=== PATIENT | female | born 1960 | race Caucasian/White ===

== ENCOUNTER 2023-02-10 15:13 | Emergency (ER) | payer OTHER ==
[~2023-02-10] VITALS: Ht 160 cm; Wt 115.7 kg
[~2023-02-10 15:13] MED LIST: ASPI81EC PO; FURO40 PO; HYDACE5 PO; METO50 PO; OMEP20ER PO; POTCHL10ER PO; PRAV40 PO; PROM25 PO
[2023-02-10 15:22] VITALS: BP 176/99
[2023-02-10] MEDS ORDERED: DOXYCYCLINE HY100 M2 PO (16:43)
[2023-02-10] MEDS ORDERED: Clindamycin HC150 MG PO (18:06)
== END 2023-02-10 18:11 | disposition home or self-care (01) ==
LOC: ER 15:13
DX: N61.0 Mastitis without abscess (principal); I10 Essential (primary) hypertension; J45.909 Unspecified asthma, uncomplicated; K21.9 Gastro-esophageal reflux disease without esophagitis; Z88.0 Allergy status to penicillin; Z88.2 Allergy status to sulfonamides; Z88.5 Allergy status to narcotic agent; Z88.1 Allergy status to other antibiotic agents; Z88.8 Allergy status to other drugs, medicaments and biological substances; Z79.899 Other long term (current) drug therapy; Z79.82 Long term (current) use of aspirin
CPT/HCPCS: 76604; 99283-25; A9270

== ENCOUNTER 2023-02-23 11:30 | Emergency (ER) | payer OTHER ==
[~2023-02-23] VITALS: Ht 160 cm; Wt 115.7 kg
[~2023-02-23 11:30] MED LIST changes: +Clindamycin HC150 MG PO; +DOXYCYCLINE HY100 M2 PO
[2023-02-23 11:56] VITALS: BP 150/75
[2023-02-23 12:22] LABS: BASOPHILS ABSOLUTE AUTO 0.11 K/mm3 (0.00-0.23); BASOPHILS PERCENT AUTO 1 % (0-2); EOSINOPHILS ABSOLUTE AUTO 0.36 K/mm3 (0.00-0.68); EOSINOPHILS PERCENT AUTO 3 % (0-6); Hematocrit 49.7 % (33.0-51.0); Hemoglobin 16.9 g/dL (11.5-16.0); IMMATURE GRAN ABSOLUTE AUTO 0.03 K/mm3 (0.00-0.10); IMMATURE GRAN PERCENT AUTO 0 % (0-1); LYMPHOCYTES ABSOLUTE AUTO 3.92 K/mm3 (0.84-5.20); LYMPHOCYTES PERCENT AUTO 37 % (21-46); MONOCYTES ABSOLUTE AUTO 0.96 K/mm3 (0.16-1.47); MONOCYTES PERCENT AUTO 9 % (4-13); Mean Corpuscular HGB 31.6 pg (26.0-34.0); Mean Corpuscular Volume 93 fL (80-100); Mean Platelet Volume 10.4 fL (9.1-12.4); NEUTROPHILS ABSOLUTE AUTO 5.31 K/mm3 (1.96-9.15); NEUTROPHILS PERCENT AUTO 50 % (41-73); Platelet Count 223 K/mm3 (150-400); RDW Coefficient Variation 11.4 % (11.7-14.2); RDW Standard Deviation 38.4 fL (35.1-46.3); Red Blood Cell Count 5.35 M/mm3 (3.80-5.20); White Blood Cell Count 10.69 K/mm3 (4.00-11.30)
[2023-02-23 12:49] LABS: Albumin, Blood 3.5 g/dL (3.4-5.0); Albumin/Globulin Ratio 0.9 (0.8-1.8); Bilirubin, Total 0.4 mg/dL (0.1-1.0); Bun/Creatinine Ratio 14.2 (12.0-20.0); Calcium, Blood 8.9 mg/dL (8.5-10.1); Creatinine, Blood 1.13 mg/dL (0.40-1.00); Globulin, Blood 4.1 g/dL (2.2-4.0); Potassium, Blood 3.7 mmol/L (3.5-5.5); Total Protein, Blood 7.6 g/dL (6.4-8.2)
[2023-02-23] MEDS ORDERED: CEFU500T30 PO (17:52)
[2023-02-23] MEDS ORDERED: CLIN300 PO (17:52)
== END 2023-02-23 18:00 | disposition home or self-care (01) ==
LOC: ER 11:30
PROVIDERS: Physician Assistant
DX: N61.1 Abscess of the breast and nipple (principal); I10 Essential (primary) hypertension; J45.909 Unspecified asthma, uncomplicated; Z88.0 Allergy status to penicillin; Z88.1 Allergy status to other antibiotic agents; Z88.2 Allergy status to sulfonamides; Z88.5 Allergy status to narcotic agent; Z88.8 Allergy status to other drugs, medicaments and biological substances
CPT/HCPCS: 10060; 76604; 80053; 85025; 96365-59; 96366-59; 96375-59; 99283-25; J1885; J3370; J7050

== ENCOUNTER 2023-06-01 09:29 | Day surgery (SDC) | payer OTHER ==
[~2023-06-01 09:29] MED LIST changes: +CEFU500T30 PO; +CLIN300 PO
[2023-06-01] MEDS ORDERED: Acetaminophen650 M1 PO (15:48)
[2023-06-01] MEDS ORDERED: IBUP200 PO (15:49)
[2023-06-01] MEDS ORDERED: HYDCHL25 PO (15:49)
[2023-06-01] MEDS ORDERED: HYDPAM25 PO (15:49)
[2023-06-01] MEDS ORDERED: [UNRECOGNIZED DRUG - OTHER] PO (15:53)
[2023-06-01] MEDS ORDERED: Ativan1 MG PO (15:53)
[2023-06-01] MEDS ORDERED: Triamcinolone A15 G3 TOP (15:55)
[2023-06-09] MEDS ORDERED: OXYC5 PO (10:32)
== END 2023-06-08 22:43 | disposition home or self-care (01) ==
LOC: MOI US 09:29
DX: C50.411 Malignant neoplasm of upper-outer quadrant of right female breast (principal); Z17.0 Estrogen receptor positive status [ER+]
CPT/HCPCS: 19285; 77065; A4648; G0279

== ENCOUNTER 2023-06-04 06:59 | Day surgery (SDC) | payer OTHER ==
[~2023-06-04] VITALS: Ht 160 cm; Wt 122.4 kg
[2023-06-04] VITALS (15 sets, daily range): BP systolic 122–146; BP diastolic 58–97
[~2023-06-04 06:59] MED LIST changes: +Acetaminophen650 M1 PO; +Ativan1 MG PO; +HYDCHL25 PO; +HYDPAM25 PO; +IBUP200 PO; +Triamcinolone A15 G3 TOP; +[UNRECOGNIZED DRUG - OTHER] PO
[2023-06-04] MEDS ORDERED: Methylene Blue 1% 100 MG/10 ML VIAL ONE (08:37)
[2023-06-04] MEDS ORDERED: Bupivacaine 0.5% HCl 5 MG/ML 30MLVIAL ONE ×2 (08:37→13:10)
[2023-06-04] MEDS ORDERED: Lactated Ringer's 1,000 ML IV SCH (08:40)
[2023-06-04] MEDS ORDERED: Clindamycin 600mg in D5W 50 ML IV SCH (08:40)
[2023-06-04] MEDS ORDERED: propofoL 20 ML IV ONE (09:15)
[2023-06-04] MEDS ORDERED: Ondansetron HCl 2 MG / ML 2ML Vial ONE (09:18)
[2023-06-04] MEDS ORDERED: SuccINYLCHOLINE Chloride 100 MG/5 ML 5MLSYR ONE (09:18)
[2023-06-04] MEDS ORDERED: FentaNYL Citrate 50 MCG/ML 2 ML Injection ONE ×2 (09:18→15:35)
[2023-06-04] MEDS ORDERED: Rocuronium Bromide 10 MG/ML 5ML Injection IV ONE (09:18)
[2023-06-04] MEDS ORDERED: Dexamethasone Sod Phos 10 MG/ML 1ML VIAL ONE (09:18)
--- NOTE | 2023-06-04 09:23 | NUR ---
Ambulatory in Day Surgery. History, Chart, Medications and Allergies reviewed before start of procedure. Lungs clear T/O to Auscultation. Patient confirms NPO status and agrees with scheduled surgery. Pre-Op teaching done. Pt verbalizes understanding. Patient States Post-Procedure ride home has been arranged. PT BELONGINGS PLACED UNDERNEATH GURNEY FOR SAFEKEEPING. PT DENTURES TAKEN TO PACU FOR SAFEKEEPING.
--- NOTE | 2023-06-04 10:22 | NUR ---
STAT ECHO ORDERED BY DR DE LA CRUZ, AUTO PARTS SALESPERSON AT BEDSIDE.
[2023-06-04] MEDS ORDERED: Etomidate 2MG / ML 10ML Vial ONE (12:54)
[2023-06-04] MEDS ORDERED: Sugammadex Sodium 200 MG/2ML SDV (100 MG/ML) ONE (13:42)
[2023-06-04] MEDS ORDERED: Glycopyrrolate 0.2 MG/ML 5ML VIAL ONE (13:53)
[2023-06-04] MEDS ORDERED: Ketorolac Tromethamine 30mg Vial ONE (14:05)
[2023-06-04] MEDS ORDERED: HYDROcodone 7.5-APAP 325 TAB PO PRN (16:15)
[2023-06-04] MEDS ORDERED: HYDROcodone 5-APAP 325 TAB PO PRN (16:45)
--- NOTE | 2023-06-04 17:04 | NUR ---
Ambulatory in Day Surgery with minimal assistance. Discharge instructions reviewed with patient. Patient verbalizes understanding. Copy given to patient to take home. Lungs clear T/O to Auscultation. Discharged via wheelchair to private car for ride home.
[2023-06-09] MEDS ORDERED: OXYC5 PO (10:32)
== END 2023-06-05 23:01 | disposition home or self-care (01) ==
LOC: NM 06:59 → ORSCMMR 06:59 → NM 07:01 → ORSCMMR 07:01 → NM 08:00 → ORSCMMR 22:42 → NM 22:42
PROVIDERS: Surgery
PROC: 0HBT0ZZ Excision of Right Breast, Open Approach (ICD-10-PCS; principal; 2023-06-04 09:00)
DX: C50.411 Malignant neoplasm of upper-outer quadrant of right female breast (principal); Z17.0 Estrogen receptor positive status [ER+]; Z88.0 Allergy status to penicillin; Z88.2 Allergy status to sulfonamides; Z88.5 Allergy status to narcotic agent
CPT/HCPCS: 38792; 76098; 88307; 93306; A9270; A9520; J0330; J1100; J1885; J2405; J2704; J3010; J7120; Q9968

== ENCOUNTER 2023-06-07 13:18 | Emergency (ER) | payer OTHER ==
[~2023-06-07] VITALS: Ht 167.6 cm; Wt 113.4 kg
[2023-06-07 16:01] LABS: Hematocrit 38.3 % (33.0-51.0); Hemoglobin 12.7 g/dL (11.5-16.0); Mean Corpuscular HGB Conc 33.2 g/dL (31.5-36.5); Mean Corpuscular Volume 93 fL (80-100); Mean Platelet Volume 10.1 fL (9.1-12.4); Platelet Count 250 K/mm3 (150-400); RDW Coefficient Variation 12.1 % (11.7-14.2); RDW Standard Deviation 41.9 fL (35.1-46.3); White Blood Cell Count 14.93 K/mm3 (4.00-11.30)
[2023-06-07] MEDS ORDERED: HYDROmorphone HCl/Pf 1MG SYR IV ONE (16:05)
[2023-06-07] MEDS ORDERED: Ondansetron HCl 2 MG / ML 2ML Vial IV ONE (16:05)
[2023-06-07 16:29] LABS: BASOPHILS ABSOLUTE MAN 0.29 K/mm3 (0.00-0.23); BASOPHILS PERCENT MAN 2 % (0-2); EOSINOPHILS ABSOLUTE MAN 0.74 K/mm3 (0.00-0.68); EOSINOPHILS PERCENT MAN 5 % (0-6); LYMPHOCYTES ABSOLUTE MAN 4.47 K/mm3 (0.84-5.20); LYMPHOCYTES PERCENT MAN 30 % (21-46); MONOCYTES ABSOLUTE MAN 0.89 K/mm3 (0.16-1.47); MONOCYTES PERCENT MAN 6 % (4-13); NEUTROPHILS ABSOLUTE MAN 8.51 K/mm3 (1.96-9.15); SEG NEUTROPHILS PERCENT MAN 57 % (41-73); TOTAL CELLS COUNTED 100
[2023-06-07 16:43] LABS: Albumin, Blood 3.5 g/dL (3.4-5.0); Albumin/Globulin Ratio 0.9 (0.8-1.8); Bilirubin, Total 0.5 mg/dL (0.1-1.0); Bun/Creatinine Ratio 17.4 (12.0-20.0); Calcium, Blood 9.3 mg/dL (8.5-10.1); Creatinine, Blood 1.32 mg/dL (0.40-1.00); Globulin, Blood 4.1 g/dL (2.2-4.0); Potassium, Blood 3.8 mmol/L (3.5-5.5); Total Protein, Blood 7.6 g/dL (6.4-8.2)
[2023-06-07 18:27] VITALS: BP 138/89
[2023-06-09] MEDS ORDERED: OXYC5 PO (10:32)
== END 2023-06-07 18:30 | disposition home or self-care (01) ==
LOC: ER 13:18
PROVIDERS: Physician Assistant
DX: L76.32 Postprocedural hematoma of skin and subcutaneous tissue following other procedure (principal); J45.909 Unspecified asthma, uncomplicated; I10 Essential (primary) hypertension; K21.9 Gastro-esophageal reflux disease without esophagitis; Z79.899 Other long term (current) drug therapy; Z88.0 Allergy status to penicillin; Z88.1 Allergy status to other antibiotic agents; Z88.2 Allergy status to sulfonamides; Z88.5 Allergy status to narcotic agent; Z88.8 Allergy status to other drugs, medicaments and biological substances
CPT/HCPCS: 76642; 80053; 83605; 84145; 85025; 96374; 96375; 99284-25; J1170; J2405

== ENCOUNTER 2023-09-21 03:28 | Day surgery (SDC) | payer OTHER ==
[~2023-09-21 03:28] MED LIST changes: +OXYC5 PO
[2023-09-21] MEDS ORDERED: Lidocaine HCl 4% Cream 5 GM ONE (08:46)
== END 2023-09-21 23:51 | disposition home or self-care (01) ==
LOC: WOUND 03:28
DX: T81.31XD Disruption of external operation (surgical) wound, not elsewhere classified, subsequent encounter (principal); N61.0 Mastitis without abscess; Y83.8 Other surgical procedures as the cause of abnormal reaction of the patient, or of later complication, without mention of misadventure at the time of the procedure
CPT/HCPCS: 36415; 80053; 85025; A6213; A9270; G0463

== ENCOUNTER 2023-10-07 04:00 | Day surgery (SDC) | payer OTHER | END 2023-10-07 22:38 | disposition home or self-care (01) | LOC: WOUND 04:00 | DX: T81.31XD Disruption of external operation (surgical) wound, not elsewhere classified, subsequent encounter (principal); N64.89 Other specified disorders of breast; N61.0 Mastitis without abscess; Z90.11 Acquired absence of right breast and nipple; Y83.8 Other surgical procedures as the cause of abnormal reaction of the patient, or of later complication, without mention of misadventure at the time of the procedure | CPT/HCPCS: A6213; G0463 ==

== ENCOUNTER 2023-10-14 03:19 | Day surgery (SDC) | payer OTHER | END 2023-10-14 22:59 | disposition home or self-care (01) | LOC: WOUND 03:19 | DX: N64.89 Other specified disorders of breast (principal); N61.0 Mastitis without abscess ==

== ENCOUNTER 2023-10-16 02:20 | Day surgery (SDC) | payer OTHER | END 2023-10-16 23:11 | disposition home or self-care (01) | LOC: WOUND 02:20 | DX: T81.31XA Disruption of external operation (surgical) wound, not elsewhere classified, initial encounter (principal); N64.89 Other specified disorders of breast ==

== ENCOUNTER 2023-10-19 01:46 | Day surgery (SDC) | payer OTHER | END 2023-10-19 04:22 | disposition home or self-care (01) | LOC: WOUND 01:46 | DX: T81.31XD Disruption of external operation (surgical) wound, not elsewhere classified, subsequent encounter (principal); S21.002D Unspecified open wound of left breast, subsequent encounter; N64.89 Other specified disorders of breast; Y83.8 Other surgical procedures as the cause of abnormal reaction of the patient, or of later complication, without mention of misadventure at the time of the procedure ==

== ENCOUNTER → 2023-10-19 | Outpatient (CLI) | payer OTHER ==
[2023-10-19 15:54] LABS: Albumin, Blood 3.1 g/dL (3.4-5.0); Albumin/Globulin Ratio 0.8 (0.8-1.8); Bilirubin, Total 0.6 mg/dL (0.1-1.0); Calcium, Blood 8.3 mg/dL (8.5-10.1); Potassium, Blood 3.1 mmol/L (3.5-5.5); Total Protein, Blood 7.1 g/dL (6.4-8.2)
== END | disposition home or self-care (01) ==
LOC: LAB 14:26 → LAB SHORT 14:26
PROVIDERS: Nurse Practitioner
DX: C50.919 Malignant neoplasm of unspecified site of unspecified female breast (principal); E87.6 Hypokalemia
CPT/HCPCS: 80053

== ENCOUNTER 2023-10-21 01:56 | Day surgery (SDC) | payer OTHER ==
[2023-10-21] MEDS ORDERED: Miconazole Nitrate 2% 85 GM PWD ONE (08:20)
== END 2023-10-21 22:46 | disposition home or self-care (01) ==
LOC: WOUND 01:56
DX: T81.31XA Disruption of external operation (surgical) wound, not elsewhere classified, initial encounter (principal); Z90.11 Acquired absence of right breast and nipple
CPT/HCPCS: A9270

== ENCOUNTER 2023-10-23 02:47 | Day surgery (SDC) | payer OTHER | END 2023-10-23 22:35 | disposition home or self-care (01) | LOC: WOUND 02:47 | DX: T81.31XA Disruption of external operation (surgical) wound, not elsewhere classified, initial encounter (principal) ==

== ENCOUNTER → 2023-10-23 | Outpatient (CLI) | payer OTHER ==
[2023-10-23 12:24] LABS: BASOPHILS ABSOLUTE AUTO 0.08 K/mm3 (0.00-0.23); BASOPHILS PERCENT AUTO 1 % (0-2); EOSINOPHILS ABSOLUTE AUTO 0.16 K/mm3 (0.00-0.68); EOSINOPHILS PERCENT AUTO 2 % (0-6); Hemoglobin 13.1 g/dL (11.5-16.0); IMMATURE GRAN ABSOLUTE AUTO 0.02 K/mm3 (0.00-0.10); IMMATURE GRAN PERCENT AUTO 0 % (0-1); LYMPHOCYTES ABSOLUTE AUTO 1.98 K/mm3 (0.84-5.20); LYMPHOCYTES PERCENT AUTO 25 % (21-46); MONOCYTES ABSOLUTE AUTO 1.05 K/mm3 (0.16-1.47); MONOCYTES PERCENT AUTO 14 % (4-13); Mean Corpuscular HGB 31.4 pg (26.0-34.0); Mean Corpuscular HGB Conc 32.8 g/dL (31.5-36.5); Mean Corpuscular Volume 96 fL (80-100); Mean Platelet Volume 10.9 fL (9.1-12.4); NEUTROPHILS ABSOLUTE AUTO 4.49 K/mm3 (1.96-9.15); NEUTROPHILS PERCENT AUTO 58 % (41-73); Platelet Count 274 K/mm3 (150-400); RDW Coefficient Variation 15.1 % (11.7-14.2); RDW Standard Deviation 53.7 fL (35.1-46.3); Red Blood Cell Count 4.17 M/mm3 (3.80-5.20); White Blood Cell Count 7.78 K/mm3 (4.00-11.30)
[2023-10-23 12:55] LABS: Albumin/Globulin Ratio 0.6 (0.8-1.8); Bilirubin, Total 0.7 mg/dL (0.1-1.0); Bun/Creatinine Ratio 9.9 (12.0-20.0); C-REACTIVE PROTEIN, EXT RANGE 7.76 mg/dL (0.000-0.300); Calcium, Blood 8.7 mg/dL (8.5-10.1); Creatinine, Blood 1.11 mg/dL (0.40-1.00); Globulin, Blood 4.9 g/dL (2.2-4.0); Total Protein, Blood 7.9 g/dL (6.4-8.2); Uric Acid, Blood 9.7 mg/dL (2.6-6.0)
== END | disposition home or self-care (01) ==
LOC: LAB SHORT 11:09 → LAB 11:09
PROVIDERS: Nurse Practitioner Family
DX: M79.671 Pain in right foot (principal); M79.89 Other specified soft tissue disorders
CPT/HCPCS: 80053; 84550; 85025; 86140

== ENCOUNTER 2023-10-26 03:20 | Day surgery (SDC) | payer OTHER | END 2023-10-26 23:11 | disposition home or self-care (01) | LOC: WOUND 03:20 | DX: T81.31XA Disruption of external operation (surgical) wound, not elsewhere classified, initial encounter (principal) ==

== ENCOUNTER 2023-10-28 03:16 | Day surgery (SDC) | payer OTHER | END 2023-10-29 22:49 | disposition home or self-care (01) | LOC: WOUND 03:16 | DX: T81.31XD Disruption of external operation (surgical) wound, not elsewhere classified, subsequent encounter (principal); N64.89 Other specified disorders of breast; Y83.8 Other surgical procedures as the cause of abnormal reaction of the patient, or of later complication, without mention of misadventure at the time of the procedure; Z90.11 Acquired absence of right breast and nipple ==

== ENCOUNTER 2023-10-30 05:38 | Day surgery (SDC) | payer OTHER | END 2023-10-30 22:34 | disposition home or self-care (01) | LOC: WOUND 05:38 | DX: T81.31XA Disruption of external operation (surgical) wound, not elsewhere classified, initial encounter (principal); N64.89 Other specified disorders of breast ==

== ENCOUNTER 2023-11-02 08:00 | Day surgery (SDC) | payer OTHER | END 2023-11-03 22:43 | disposition home or self-care (01) | LOC: WOUND 08:00 | DX: T81.31XA Disruption of external operation (surgical) wound, not elsewhere classified, initial encounter (principal); N64.89 Other specified disorders of breast ==

== ENCOUNTER 2023-11-04 01:18 | Day surgery (SDC) | payer OTHER | END 2023-11-05 05:09 | disposition home or self-care (01) | LOC: WOUND 01:18 | DX: T81.31XA Disruption of external operation (surgical) wound, not elsewhere classified, initial encounter (principal); N64.89 Other specified disorders of breast | CPT/HCPCS: A6213; G0463 ==

== ENCOUNTER 2023-11-06 01:57 | Day surgery (SDC) | payer OTHER | END 2023-11-06 22:55 | disposition home or self-care (01) | LOC: WOUND 01:57 | DX: T81.31XD Disruption of external operation (surgical) wound, not elsewhere classified, subsequent encounter (principal) | CPT/HCPCS: A6213; G0463 ==

== ENCOUNTER 2023-11-09 07:12 | Day surgery (SDC) | payer OTHER | END 2023-11-09 23:55 | disposition home or self-care (01) | LOC: WOUND 07:12 | DX: T81.31XD Disruption of external operation (surgical) wound, not elsewhere classified, subsequent encounter (principal) | CPT/HCPCS: A6213; G0463 ==

== ENCOUNTER 2023-11-11 04:02 | Day surgery (SDC) | payer OTHER | END 2023-11-11 22:52 | disposition home or self-care (01) | LOC: WOUND 04:02 | DX: T81.31XA Disruption of external operation (surgical) wound, not elsewhere classified, initial encounter (principal); N64.89 Other specified disorders of breast ==

== ENCOUNTER 2023-11-13 03:44 | Day surgery (SDC) | payer OTHER | END 2023-11-13 22:53 | disposition home or self-care (01) | LOC: WOUND 03:44 | DX: Z01.89 Encounter for other specified special examinations (principal); T81.31XS Disruption of external operation (surgical) wound, not elsewhere classified, sequela; Y83.8 Other surgical procedures as the cause of abnormal reaction of the patient, or of later complication, without mention of misadventure at the time of the procedure; Z90.11 Acquired absence of right breast and nipple ==

== ENCOUNTER 2023-11-30 02:58 | Day surgery (SDC) | payer OTHER ==
[2023-11-30] MEDS ORDERED: Lidocaine HCl 4% Topical Soln 5 MLUDC ONE (07:53)
== END 2023-12-01 00:45 | disposition home or self-care (01) ==
LOC: WOUND 02:58
DX: T81.31XA Disruption of external operation (surgical) wound, not elsewhere classified, initial encounter (principal); C50.919 Malignant neoplasm of unspecified site of unspecified female breast
CPT/HCPCS: 36415; 80053; 85025; A9270

== ENCOUNTER 2023-12-02 05:33 | Day surgery (SDC) | payer OTHER ==
[2023-12-02] MEDS ORDERED: Lidocaine HCl 4% Topical Soln 5 MLUDC ONE (09:35)
[2023-12-02 12:26] LABS: Calcium, Blood 8.1 mg/dL (8.5-10.1); Creatinine, Blood 0.88 mg/dL (0.40-1.00); Uric Acid, Blood 4.9 mg/dL (2.6-6.0)
[2023-12-03] MEDS ORDERED: POTCHL20ER PO (13:32)
[2023-12-03] MEDS ORDERED: OMEPRAZOLE MAGN20 MG PO (13:32)
[2023-12-03] MEDS ORDERED: LOSA25 PO (13:32)
[2023-12-03] MEDS ORDERED: ALLOPURINOL100 MG PO (13:33)
[2023-12-03] MEDS ORDERED: BENADRYL25 M1 PO (13:33)
== END 2023-12-02 23:06 | disposition home or self-care (01) ==
LOC: WOUND 05:33
PROVIDERS: Family Medicine
DX: T81.31XA Disruption of external operation (surgical) wound, not elsewhere classified, initial encounter (principal); S21.002A Unspecified open wound of left breast, initial encounter; X58.XXXA Exposure to other specified factors, initial encounter; N64.89 Other specified disorders of breast
CPT/HCPCS: 36415; 80048; 84550; A6213; A9270; G0463

== ENCOUNTER 2023-12-03 13:19 | Inpatient (IN) | payer OTHER ==
[~2023-12-03] VITALS: Ht 160 cm; Wt 164.6 kg
[2023-12-03] MEDS ORDERED: LOSA25 PO (13:32)
[2023-12-03] MEDS ORDERED: POTCHL20ER PO (13:32)
[2023-12-03] MEDS ORDERED: OMEPRAZOLE MAGN20 MG PO (13:32)
[2023-12-03] MEDS ORDERED: BENADRYL25 M1 PO (13:33)
[2023-12-03] MEDS ORDERED: ALLOPURINOL100 MG PO (13:33)
[2023-12-03 15:06] LABS: BASOPHILS PERCENT AUTO 2 % (0-2); EOSINOPHILS ABSOLUTE AUTO 0.21 K/mm3 (0.00-0.68); EOSINOPHILS PERCENT AUTO 3 % (0-6); Hematocrit 36.5 % (33.0-51.0); Hemoglobin 11.9 g/dL (11.5-16.0); IMMATURE GRAN ABSOLUTE AUTO 0.02 K/mm3 (0.00-0.10); IMMATURE GRAN PERCENT AUTO 0 % (0-1); LYMPHOCYTES PERCENT AUTO 39 % (21-46); MONOCYTES ABSOLUTE AUTO 0.54 K/mm3 (0.16-1.47); MONOCYTES PERCENT AUTO 8 % (4-13); Mean Corpuscular HGB 32.3 pg (26.0-34.0); Mean Corpuscular HGB Conc 32.6 g/dL (31.5-36.5); Mean Corpuscular Volume 99 fL (80-100); Mean Platelet Volume 10.7 fL (9.1-12.4); NEUTROPHILS ABSOLUTE AUTO 3.23 K/mm3 (1.96-9.15); NEUTROPHILS PERCENT AUTO 48 % (41-73); Platelet Count 267 K/mm3 (150-400); RDW Coefficient Variation 13.8 % (11.7-14.2); RDW Standard Deviation 49.9 fL (35.1-46.3); Red Blood Cell Count 3.68 M/mm3 (3.80-5.20)
[2023-12-03 15:26] LABS: Albumin, Blood 2.3 g/dL (3.4-5.0); Albumin/Globulin Ratio 0.4 (0.8-1.8); Bilirubin, Total 0.4 mg/dL (0.1-1.0); Bun/Creatinine Ratio 6.7 (12.0-20.0); Creatinine, Blood 0.9 mg/dL (0.40-1.00); Globulin, Blood 5.7 g/dL (2.2-4.0); Potassium, Blood 3.3 mmol/L (3.5-5.5)
[2023-12-03] MEDS ORDERED: Potassium Chloride 20 MEQ TabCR PO ONE ×2 (18:05→21:00)
[2023-12-03] MEDS ORDERED: Ondansetron HCl 2 MG / ML 2ML Vial IV PRN (19:35)
[2023-12-03] MEDS ORDERED: Acetaminophen 325 MG TABLET PO PRN (19:35)
[2023-12-03] MEDS ORDERED: OxyCODONE HCL 5 MG TAB PO PRN (19:40)
[2023-12-03] MEDS ORDERED: Albuterol 2.5 MG/3 ML VIAL INH PRN (19:45)
[2023-12-03] MEDS ORDERED: HydrALAZINE HCl 20 MG / ML 1ML Vial IV PRN (19:50)
[2023-12-03] MEDS ORDERED: Furosemide 10 MG/ML 4ML Vial IV SCH (20:00)
[2023-12-03] MEDS ORDERED: Nitroglycerin 1 INCH/GM PKT TOP ONE (20:00)
[2023-12-03 20:52] LABS: Adenovirus Not Detected (NOT DETECT); Coronavirus 229E Not Detected (NOT DETECT); Coronavirus HKU1 Not Detected (NOT DETECT); Coronavirus NL63 Not Detected (NOT DETECT); Coronavirus OC43 Not Detected (NOT DETECT); Human Metapneumovirus Not Detected (NOT DETECT); Human Rhinovirus/Enterovirus Not Detected (NOT DETECT); Influenza A/H1 Not Detected (NOT DETECT); SARS-Cov-2 (COVID-19), BioFire Not Detected (NOT DETECT)
[2023-12-03 20:53] LABS: Bordetella pertussis Not Detected (NOT DETECT); Chlamydophila pneumoniae Not Detected (NOT DETECT); Influenza A/2009-H1 Not Detected (NOT DETECT); Influenza A/H3 Not Detected (NOT DETECT); Influenza B Not Detected (NOT DETECT); Mycoplasma pneumoniae Not Detected (NOT DETECT); Parainfluenza Virus 1 Not Detected (NOT DETECT); Parainfluenza Virus 2 Not Detected (NOT DETECT); Parainfluenza Virus 3 Not Detected (NOT DETECT); Parainfluenza Virus 4 Not Detected (NOT DETECT); Respiratory Syncytial Virus Not Detected (NOT DETECT)
[2023-12-03 21:16] VITALS: BP 113/91
--- NOTE | 2023-12-03 22:34 | NUR ---
ADMIT NOTE HANDOFF RECEIVED FROM KENNEDY HERRERA RN. PT ARRIVED TO FLOOR VIA GURNEY. PT ORIENTED TO UNIT. CALL BUTTON WITHIN REACH. TELEMETRY IN PLACE. WILL CALL FOR CPAP ORDER FROM PHYSICIAN.
--- NOTE | 2023-12-04 04:02 | NUR ---
SHIFT SUMMARY ADMITTED THIS SHIFT FOR NEW ONSET CHF. FULL CODE. PLAN IS FOR ECHO TODAY, DIURESING. TELEMETRY: NSR @ 91 BPM. HX OF BREAST CANCER RT BREAST, LUMPECTOMY IN MAY OF THIS YEAR. THE LUMPECTOMY SITE OPENED AND IS NON-HEALING. SHE SEES WOUND THERAPY 3 DAYS A WEEK, WITH HER WOUND VAC REMOVED ONE DAY PREVIOUS TO ADMIT. SHE HAS COMPLETED CHEMO 10 WEEKS AGO WITH PLANS TO START RADIATION WHEN AND IF HER SURGICAL SITE EVER HEALS. SHE WEARS A CPAP @ [facility]. 1 ASSIST WITH [facility]. SHE IS A&O X4. DR. HILLIARD IS HER OUTPT ONCOLOGY
[2023-12-04 04:31] VITALS: BP 110/69
[2023-12-04] MEDS ORDERED: Omeprazole 20 MG CapCR PO SCH (06:00)
[2023-12-04 06:26] LABS: Albumin, Blood 2.2 g/dL (3.4-5.0); Albumin/Globulin Ratio 0.4 (0.8-1.8); Bilirubin, Total 0.4 mg/dL (0.1-1.0); Bun/Creatinine Ratio 8.6 (12.0-20.0); Calcium, Blood 8.2 mg/dL (8.5-10.1); Creatinine, Blood 0.93 mg/dL (0.40-1.00); Globulin, Blood 5.7 g/dL (2.2-4.0); Potassium, Blood 3.1 mmol/L (3.5-5.5); Total Protein, Blood 7.9 g/dL (6.4-8.2)
[2023-12-04 07:25] VITALS: BP 135/67
[2023-12-04] MEDS ORDERED: Allopurinol 100 MG Tab PO SCH (09:00)
[2023-12-04] MEDS ORDERED: Enoxaparin 40 MG/0.4 ML SYR SC SCH (09:00)
[2023-12-04] MEDS ORDERED: Potassium Chloride 20 MEQ TabCR PO SCH (09:00)
[2023-12-04] MEDS ORDERED: Losartan Potassium 25 MG Tab PO SCH (09:00)
--- NOTE | 2023-12-04 16:48 | NUR ---
Call back - Riffler Tender updated typewriter aligner. Pt welcomed Blackener in. Space provided for pt to relfect on events leading up to hospital matriculation. Pt discusses jew underpinnings and jenifer journey. Pt becomes tearful at times and magnetic prospector normalized her feelings. Pt's sister arrives with [place]. At one point, pt says, "I'm done." Sister and brother tell her she needs to keep fighting for her children. Pt attends an assembly's rastafarian in [place] and antique finisher provides support. Pt expecting antique finisher to arrive after work today for a visit. Pastoral prayer extended on behalf of pt and family present. She verbalized gratitude for the interventions.
[2023-12-04 20:15] VITALS: BP 143/79
[2023-12-05] MEDS ORDERED: DiphenhydrAMINE HCl 50 MG Cap PO PRN ×2 (00:25→21:18)
[2023-12-05 03:47] VITALS: BP 136/70
--- NOTE | 2023-12-05 04:54 | NUR ---
SHIFT SUMMARY: BRENDA IS A&OX4. VSS, NO ACUTE EVENTS OVERNIGHT. SHE IS MAINTAINING SATS ORA, DID UTILIZE THE CPAP WHILE RESTING IN BED THIS SHIFT. CONTINUOUS PULSE OX IN PLACE. SHE IS INDEPENDENT IN THE ROOM. DENIES DIZZINESS, LIGHTHEADEDNESS, OR SIGNIFICANT SHORTNESS OF BREATH ON EXERTION. SHE STATES THAT SHE DOES BECOME MILDLY SHORT OF BREATH ON EXERTION, BUT DOES NOT FEEL IT IS TO AN UNSAFE DEGREE. SHE IS TOLERATING PO INTAKE WELL, USES THE CALL LIGHT APPROPRIATELY, AND DENIES ANY DIFFICULTY WITH ELIMINATION. PT STATES SHE IS HOPEFUL SHE WILL BE DISCHARGED HOME TODAY. SHE IS LYING IN BED WITH THE CALL LIGHT IN REACH, BED IN LOWEST POSITION. WILL GIVE REPORT TO DAY SHIFT RN.
[2023-12-05 06:03] LABS: Albumin, Blood 2.3 g/dL (3.4-5.0); Albumin/Globulin Ratio 0.4 (0.8-1.8); Bilirubin, Total 0.3 mg/dL (0.1-1.0); Bun/Creatinine Ratio 6.3 (12.0-20.0); Calcium, Blood 8.1 mg/dL (8.5-10.1); Creatinine, Blood 0.96 mg/dL (0.40-1.00); Phosphorus, Blood 4.3 mg/dL (2.5-4.9); Potassium, Blood 3.3 mmol/L (3.5-5.5); Total Protein, Blood 8.3 g/dL (6.4-8.2)
[2023-12-05] MEDS ORDERED: Potassium Chloride 20 MEQ TabCR PO STA (07:33)
[2023-12-05 07:50] VITALS: BP 132/59
[2023-12-05] MEDS ORDERED: Spironolactone 25 MG Tab PO SCH (09:00)
[2023-12-05] MEDS ORDERED: Torsemide 20 MG TAB PO SCH (09:00)
[2023-12-05] MEDS ORDERED: Potassium Chloride 20 MEQ TabCR PO ONE (09:40)
[2023-12-05 15:17] VITALS: BP 124/72
--- NOTE | 2023-12-05 18:08 | NUR ---
SHIFT SUMMARY PT CONT LEVEL OF CARE WITH NO ACUTE CHANGES NOTED. PT IS A&O X4 AND INDEPENDENT IN ROOM. PLAN IS FOR PT TO GO HOME TOMORROW.
[2023-12-05 20:50] VITALS: BP 124/88
[2023-12-05] MEDS ORDERED: DiphenhydrAMINE HCl 50 MG Cap PO SCH (21:15)
[2023-12-06 05:29] VITALS: BP 136/71
--- NOTE | 2023-12-06 05:40 | NUR ---
SHIFT ASSESSMENT PATIENT IS ALERT AND ORIENTED TO ALL. FULL CODE. PLEASANT AND COOPERATIVE WITH CARE. USES CALL LIGHT APPROPRIATELY. INDEPENDENT IN ROOM. EARLY IN SHIFT, PATIENT REQUESTS PAIN MEDICATION AND BENADRYL SO SHE IS ABLE TO SLEEP. THIS RN CALLS HOSPITALIST TO REQUEST AND ORDER FOR BENADRYL, WHICH IS GIVEN BY HOSPITALIST. PATIENT IS GIVEN PAIN MEDICATION AND BENADRYL PER EMAR. PATIENT SLEEPS FOR MOST OF THE NIGHT. BED IS IN LOWEST POSITION, AND CALL LIGHT IS WITHIN REACH. ALL INFORMATION WILL BE RELAYED TO ONCOMING AM NURSE. NO ACUTE CHANGES DURING THIS SHIFT.
[2023-12-06 05:44] LABS: Bun/Creatinine Ratio 10.3 (12.0-20.0); Calcium, Blood 8.6 mg/dL (8.5-10.1); Creatinine, Blood 1.16 mg/dL (0.40-1.00); Magnesium, Blood 1.9 mg/dL (1.6-2.4); Potassium, Blood 3.1 mmol/L (3.5-5.5)
[2023-12-06 07:52] VITALS: BP 136/72
[2023-12-06] MEDS ORDERED: Potassium Chloride 20 MEQ/15 ML UDC PO ONE (08:20)
[2023-12-06] MEDS ORDERED: Potassium Chloride 20 MEQ TabCR PO STA (08:28)
[2023-12-06] MEDS ORDERED: Spironolactone 50 MG Tab PO SCH (09:00)
[2023-12-06] MEDS ORDERED: SPIR50 PO (11:59)
[2023-12-06] MEDS ORDERED: SOAANZ40 M1 PO (12:00)
--- NOTE | 2023-12-06 13:33 | NUR ---
DISCHARGE SUMMARY PT DC THIS SHIFT. PT WAS GIVEN DC INSTRUCTION BY NAINA CANELA. THIS NURSE ESCORTED PT TO PRIVATE VEHICLE ACCOMPANIED BY PT DAUGHTER. THIS NURSE ASKED PT IF SHE HAD ANY QUESTION RE: DC INSTRUCTION PT STATED NO THAT ANOTHER NURSE HAD ALREADY GONE OVER INSTRUCTIONS WITH HER.
== END 2023-12-06 13:21 | disposition home or self-care (01) | DRG 291 ==
LOC: ER 13:19 → BHU 13:20 → MEDS 13:20 → ENPENDDIS 12-06 11:02 → MEDS 12-06 13:21
PROVIDERS: Emergency Medicine; Internal Medicine; Internal Medicine Cardiovascular Disease; Nurse Practitioner Acute Care; ADMIT Family Medicine
PROC: 5A09357 Assistance with Respiratory Ventilation, Less than 24 Consecutive Hours, Continuous Positive Airway Pressure (ICD-10-PCS; principal; 2023-12-04)
DX: I11.0 Hypertensive heart disease with heart failure (principal); I50.31 Acute diastolic (congestive) heart failure; Z68.42 Body mass index [BMI] 45.0-49.9, adult; I35.2 Nonrheumatic aortic (valve) stenosis with insufficiency; E87.6 Hypokalemia; R74.01 Elevation of levels of liver transaminase levels; K76.1 Chronic passive congestion of liver; R79.1 Abnormal coagulation profile; I71.21 Aneurysm of the ascending aorta, without rupture; M10.9 Gout, unspecified; E66.01 Morbid (severe) obesity due to excess calories; J45.909 Unspecified asthma, uncomplicated; G47.33 Obstructive sleep apnea (adult) (pediatric); K21.9 Gastro-esophageal reflux disease without esophagitis; Z99.89 Dependence on other enabling machines and devices; Z92.21 Personal history of antineoplastic chemotherapy; Z85.3 Personal history of malignant neoplasm of breast; Z88.0 Allergy status to penicillin; Z88.2 Allergy status to sulfonamides; Z88.1 Allergy status to other antibiotic agents; Z88.8 Allergy status to other drugs, medicaments and biological substances; Z79.899 Other long term (current) drug therapy; Z98.890 Other specified postprocedural states
CPT/HCPCS: 0202U; 36415; 71046; 71260; 80048; 80053; 83735; 83880; 84100; 84145; 84484; 85025; 85379; 93005; 93010; 93306; 94660; 94760; 94762; 96372; 96374-59; 96376; 99285-25; A9270; G0378; J1650; J1940; Q9967

== ENCOUNTER 2023-12-07 00:35 | Day surgery (SDC) | payer OTHER ==
[~2023-12-07 00:35] MED LIST changes: +ALLOPURINOL100 MG PO; +BENADRYL25 M1 PO; +LOSA25 PO; +OMEPRAZOLE MAGN20 MG PO; +POTCHL20ER PO; +SOAANZ40 M1 PO; +SPIR50 PO
== END 2023-12-08 22:37 | disposition home or self-care (01) ==
LOC: WOUND
DX: T81.31XD Disruption of external operation (surgical) wound, not elsewhere classified, subsequent encounter (principal); S21.002D Unspecified open wound of left breast, subsequent encounter; Y83.8 Other surgical procedures as the cause of abnormal reaction of the patient, or of later complication, without mention of misadventure at the time of the procedure; X58.XXXD Exposure to other specified factors, subsequent encounter
CPT/HCPCS: A6196; A6213; G0463

== ENCOUNTER 2023-12-11 01:44 | Day surgery (SDC) | payer OTHER | END 2023-12-11 23:03 | disposition home or self-care (01) | LOC: WOUND 01:44 | DX: T81.31XD Disruption of external operation (surgical) wound, not elsewhere classified, subsequent encounter (principal) | CPT/HCPCS: A6196; A6213; G0463 ==

== ENCOUNTER 2024-01-05 03:13 | Day surgery (SDC) | payer OTHER ==
[2024-01-05] MEDS ORDERED: Lidocaine HCl 4% Cream 5 GM ONE (10:40)
[2024-01-05] MEDS ORDERED: Triamcinolone Acet 0.1% Cream 15 gm ONE (10:41)
== END 2024-01-05 23:00 | disposition home or self-care (01) ==
LOC: WOUND 03:13
DX: T81.31XD Disruption of external operation (surgical) wound, not elsewhere classified, subsequent encounter (principal); I10 Essential (primary) hypertension; M06.9 Rheumatoid arthritis, unspecified; Z90.11 Acquired absence of right breast and nipple
CPT/HCPCS: A6213; A9270; G0463

== ENCOUNTER 2024-01-12 02:06 | Day surgery (SDC) | payer OTHER | END 2024-01-12 23:03 | disposition home or self-care (01) | LOC: WOUND 02:06 | DX: T81.31XA Disruption of external operation (surgical) wound, not elsewhere classified, initial encounter (principal); S21.002A Unspecified open wound of left breast, initial encounter; X58.XXXA Exposure to other specified factors, initial encounter; N64.89 Other specified disorders of breast | CPT/HCPCS: G0463 ==

== ENCOUNTER 2024-02-08 12:23 | Emergency (ER) | payer OTHER ==
[~2024-02-08] VITALS: Ht 160 cm; Wt 111.1 kg
[2024-02-08 13:46] LABS: Albumin, Blood 3.2 g/dL (3.4-5.0); Albumin/Globulin Ratio 0.6 (0.8-1.8); Bilirubin, Total 0.6 mg/dL (0.1-1.0); Bun/Creatinine Ratio 14.2 (12.0-20.0); Creatinine, Blood 1.13 mg/dL (0.40-1.00); Globulin, Blood 5.4 g/dL (2.2-4.0); Potassium, Blood 4.8 mmol/L (3.5-5.5); Total Protein, Blood 8.6 g/dL (6.4-8.2)
[2024-02-08] MEDS ORDERED: POTA10T (16:27)
[2024-02-08 16:28] VITALS: BP 144/95
[2024-02-08 16:35] LABS: BASOPHILS ABSOLUTE AUTO 0.08 K/mm3 (0.00-0.23); BASOPHILS PERCENT AUTO 1 % (0-2); EOSINOPHILS ABSOLUTE AUTO 0.28 K/mm3 (0.00-0.68); EOSINOPHILS PERCENT AUTO 2 % (0-6); Hematocrit 46.7 % (33.0-51.0); Hemoglobin 15.6 g/dL (11.5-16.0); IMMATURE GRAN ABSOLUTE AUTO 0.05 K/mm3 (0.00-0.10); IMMATURE GRAN PERCENT AUTO 0 % (0-1); LYMPHOCYTES ABSOLUTE AUTO 3.86 K/mm3 (0.84-5.20); LYMPHOCYTES PERCENT AUTO 26 % (21-46); MONOCYTES ABSOLUTE AUTO 1.02 K/mm3 (0.16-1.47); MONOCYTES PERCENT AUTO 7 % (4-13); Mean Corpuscular HGB 31.7 pg (26.0-34.0); Mean Corpuscular HGB Conc 33.4 g/dL (31.5-36.5); Mean Corpuscular Volume 95 fL (80-100); Mean Platelet Volume 10.6 fL (9.1-12.4); NEUTROPHILS ABSOLUTE AUTO 9.31 K/mm3 (1.96-9.15); NEUTROPHILS PERCENT AUTO 64 % (41-73); Platelet Count 279 K/mm3 (150-400); RDW Coefficient Variation 13.4 % (11.7-14.2); RDW Standard Deviation 46.7 fL (35.1-46.3); Red Blood Cell Count 4.92 M/mm3 (3.80-5.20)
[2024-02-08] MEDS ORDERED: Doxycycline Hyclate 100 MG TAB PO ONE (17:40)
[2024-02-08] MEDS ORDERED: RX Prepack Albuterol 1 PREPACK/6.7 GM INH UD ONE ×2 (17:40)
[2024-02-08] MEDS ORDERED: DOXY100 PO (17:44)
== END 2024-02-08 18:05 | disposition home or self-care (01) ==
LOC: ER 12:23
PROVIDERS: Emergency Medicine
DX: J18.9 Pneumonia, unspecified organism (principal); B34.9 Viral infection, unspecified; I10 Essential (primary) hypertension; J45.909 Unspecified asthma, uncomplicated; K21.9 Gastro-esophageal reflux disease without esophagitis; Z88.5 Allergy status to narcotic agent; Z88.0 Allergy status to penicillin; Z88.2 Allergy status to sulfonamides; Z88.1 Allergy status to other antibiotic agents; Z88.8 Allergy status to other drugs, medicaments and biological substances; Z79.899 Other long term (current) drug therapy
CPT/HCPCS: 36415; 71046; 80053; 83880; 84484; 85025; 93005; 93010; 99285-25; A9270

== ENCOUNTER 2024-03-08 09:32 | Day surgery (SDC) | payer OTHER ==
[~2024-03-08] VITALS: Ht 160 cm; Wt 112.0 kg
[~2024-03-08 09:32] MED LIST changes: +DOXY100 PO; +POTA10T
[2024-03-08] MEDS ORDERED: FentaNYL Citrate 50 MCG/ML 2 ML Injection ONE (12:10)
[2024-03-08] MEDS ORDERED: Midazolam HCl 1MG / ML 2ML Vial ONE (12:10)
[2024-03-08] MEDS ORDERED: NS 1,000 ML IV ONE ×2 (12:10→12:11)
[2024-03-08] MEDS ORDERED: Verapamil HCL 2.5 MG/ML 2ML Injection ONE (12:10)
[2024-03-08] MEDS ORDERED: NS 250 ML IV ONE (12:11)
[2024-03-08] MEDS ORDERED: Nitroglycerin 2 MG/20 ML BTL ONE (12:11)
[2024-03-08] MEDS ORDERED: Heparin Sodium 1000 Units/ML 10ML MDV ONE (12:11)
[2024-03-08 14:17] VITALS: BP 133/88
[2024-03-08 14:48] VITALS: BP 118/93
--- NOTE | 2024-03-08 16:16 | NUR ---
PT VERBALIZES UNDERSTANDING WRITTEN AND VERBAL INSTRUCTIONS. DENIES QUESTIONS. VSS. NADN. PT IV DC'D. CATH INTACT. PRESSURE DSG APPLIED. NO BLEEDING NOTED. PT TR BAND DEFLATED FULLY AND REMOVED. DOT DRESSING WITH SPLINT IN PLACE. NO BLEEDINGNOTED. PT DC TO HOME VIA FAMILY BY CHAY
== END 2024-03-08 16:39 | disposition home or self-care (01) ==
LOC: MHTC 09:32
DX: I71.21 Aneurysm of the ascending aorta, without rupture (principal); I35.0 Nonrheumatic aortic (valve) stenosis; I27.20 Pulmonary hypertension, unspecified; I11.0 Hypertensive heart disease with heart failure; I50.30 Unspecified diastolic (congestive) heart failure; J44.9 Chronic obstructive pulmonary disease, unspecified; C50.911 Malignant neoplasm of unspecified site of right female breast; M79.7 Fibromyalgia; G40.909 Epilepsy, unspecified, not intractable, without status epilepticus; G47.33 Obstructive sleep apnea (adult) (pediatric); Z79.899 Other long term (current) drug therapy; Z88.0 Allergy status to penicillin; Z88.2 Allergy status to sulfonamides; Z88.1 Allergy status to other antibiotic agents; Z88.8 Allergy status to other drugs, medicaments and biological substances; Z90.49 Acquired absence of other specified parts of digestive tract
CPT/HCPCS: 76937; 93456; 99152; 99153; C1769; C1887; C1894; J1644; J2250; J3010; J7030; J7050; Q9967

== ENCOUNTER 2024-06-13 03:34 | Inpatient (IN) | payer OTHER ==
[~2024-06-13] VITALS: Ht 160 cm; Wt 113.4 kg
[2024-06-13] MEDS ORDERED: NS 1,000 ML IV SCH (03:50)
[2024-06-13] MEDS ORDERED: Ondansetron HCl 2 MG / ML 2ML Vial IV ONE (03:50)
[2024-06-13] MEDS ORDERED: Ketorolac Tromethamine 30mg Vial IV ONE (03:50)
[2024-06-13 04:02] LABS: Hematocrit 40.8 % (33.0-51.0); Hemoglobin 12.9 g/dL (11.5-16.0); Mean Corpuscular HGB 31.1 pg (26.0-34.0); Mean Corpuscular HGB Conc 31.6 g/dL (31.5-36.5); Mean Corpuscular Volume 98 fL (80-100); Mean Platelet Volume 9.9 fL (9.1-12.4); Platelet Count 374 K/mm3 (150-400); RDW Coefficient Variation 13.2 % (11.7-14.2); RDW Standard Deviation 47.8 fL (35.1-46.3); Red Blood Cell Count 4.15 M/mm3 (3.80-5.20); White Blood Cell Count 25.68 K/mm3 (4.00-11.30)
[2024-06-13 04:20] LABS: Albumin, Blood 3.5 g/dL (3.4-5.0); Albumin/Globulin Ratio 0.6 (0.8-1.8); Bilirubin, Direct 0.1 mg/dL (0.0-0.3); Bilirubin, Indirect 0.2 mg/dL (0.1-0.7); Bilirubin, Total 0.3 mg/dL (0.1-1.0); Calcium, Blood 9.4 mg/dL (8.5-10.1); Creatinine, Blood 1.93 mg/dL (0.40-1.00); Globulin, Blood 5.7 g/dL (2.2-4.0); Potassium, Blood 4.4 mmol/L (3.5-5.5); Total Protein, Blood 9.2 g/dL (6.4-8.2)
[2024-06-13 04:44] LABS: BAND PERCENT MAN 14 % (0-8); BASOPHILS PERCENT MAN 0 % (0-2); EOSINOPHILS PERCENT MAN 0 % (0-6); LYMPHOCYTES ABSOLUTE MAN 0.77 K/mm3 (0.84-5.20); LYMPHOCYTES PERCENT MAN 3 % (21-46); MONOCYTES ABSOLUTE MAN 2.82 K/mm3 (0.16-1.47); MONOCYTES PERCENT MAN 11 % (4-13); NEUTROPHILS ABSOLUTE MAN 22.08 K/mm3 (1.96-9.15); SEG NEUTROPHILS PERCENT MAN 72 % (41-73); TOTAL CELLS COUNTED 100
[2024-06-13] MEDS ORDERED: MetroNIDAZOLE 500MG/NS 100 ml 100 ML IV ONE (05:55)
[2024-06-13] MEDS ORDERED: Morphine Sulfate 4 MG/1 ML Injection IV ONE (05:55)
[2024-06-13] MEDS ORDERED: Ciprofloxacin 400MG/D5 200ML 200 ML IV ONE (05:55)
[2024-06-13] MEDS ORDERED: Acetaminophen 325 MG TABLET PO PRN (06:05)
[2024-06-13] MEDS ORDERED: FLU VACC TS2024-25(6MOS UP)/PF 45 MCG/0.5 ML SYRINGE IM ONE (06:05)
[2024-06-13] MEDS ORDERED: Naloxone HCl 0.4MG / ML 1ML Vial IV PRN (06:05)
[2024-06-13] MEDS ORDERED: TraMADol HCl 50 MG Tab PO PRN (06:05)
[2024-06-13] MEDS ORDERED: Morphine Sulfate 4 MG/1 ML Injection IV PRN (06:10)
[2024-06-13] MEDS ORDERED: Lactated Ringer's 1,000 ML IV SCH (07:00)
[2024-06-13] MEDS ORDERED: Lactobacil 2-S.Thermo-Bifido 1 1 Cap PO SCH (09:00)
[2024-06-13 11:34] LABS: Hematocrit 36.6 % (33.0-51.0); Hemoglobin 11.4 g/dL (11.5-16.0)
[2024-06-13] MEDS ORDERED: Lactated Ringer's 1,000 ML IV ONE (11:40)
[2024-06-13] MEDS ORDERED: MetroNIDAZOLE 500MG/NS 100 ml 100 ML IV SCH (16:00)
[2024-06-13] MEDS ORDERED: NS 250 ML IV PRN (16:50)
[2024-06-13 16:54] VITALS: BP 122/75
[2024-06-13] MEDS ORDERED: ANASTROZOLE1 M7 PO (17:55)
[2024-06-13] MEDS ORDERED: POTA10T PO (17:56)
[2024-06-13] MEDS ORDERED: GABA300 PO (17:56)
--- NOTE | 2024-06-13 18:15 | NUR ---
SHIFT SUMMARY PT A&OX4, VSS, AMB W/ SBA, TOLERATING CLEAR LIQUIDS, AND PAIN MANAED PER EMAR. CALL LIGHT WITHIN REACH.
[2024-06-13 19:36] VITALS: BP 103/70
[2024-06-13] MEDS ORDERED: Ciprofloxacin 400MG/D5 200ML 200 ML IV SCH (21:00)
[2024-06-13] MEDS ORDERED: Ondansetron HCl 2 MG / ML 2ML Vial IV PRN (21:30)
[2024-06-14 02:18] VITALS: BP 129/82
--- NOTE | 2024-06-14 04:38 | NUR ---
VP TRAINING SUMMARY: PT ADMITTED FOR COLITIS. PT A&O X4, MAKES NEEDS KNOWN. C/O ABD / GENERALIZED PAIN AT BEGINNING OF SHIFT. MEDICATED WITH PRN MORPHINE; EFFECTIVE. PT C/O NAUSEA. NEW ORDER OBTAINED FOR ZOFRAN. PT DECLINED NEED NAUSEA SUBSIDED. NEW 22G PIV PLACED TO R WRIST BY LEATHA CANELA. PT TOLERATING IV ABX. STOOL SPECIMEN SENT TO LAB DURING SHIFT. CALL LIGHT IN REACH. BED IN LOWEST POSITION. CARES CONTINUE ORDERED.
[2024-06-14 05:53] LABS: Adenovirus F 40/41 Not Detected (NOT DETECT); Astrovirus Not Detected (NOT DETECT); Campylobacter Sp Not Detected (NOT DETECT); Cryptosporidium Not Detected (NOT DETECT); Cyclospora Cayetanensis Not Detected (NOT DETECT); E. Coli O157 Not Detected (NOT DETECT); Entamoeba Histolytica Not Detected (NOT DETECT); Enteroaggregative E. coli-EAEC Not Detected (NOT DETECT); Enteropathogenic E. coli-EPEC Not Detected (NOT DETECT); Enterotoxigenic E. coli-ETEC Not Detected (NOT DETECT); Giardia Lamblia Not Detected (NOT DETECT); Norovirus GI/GII Not Detected (NOT DETECT); Plesiomonas Shigelloides Not Detected (NOT DETECT); Rotavirus A Not Detected (NOT DETECT); Salmonella Sp Not Detected (NOT DETECT); Sapovirus Not Detected (NOT DETECT); Shiga Toxin-prod E. coli-STEC Not Detected (NOT DETECT); Shigella/Enteroin E. coli-EIEC Not Detected (NOT DETECT); Vibrio Cholerae Not Detected (NOT DETECT); Vibrio Sp Not Detected (NOT DETECT); Yersinia Enterocolitica Not Detected (NOT DETECT)
[2024-06-14 07:55] VITALS: BP 121/75
[2024-06-14 11:46] LABS: BASOPHILS ABSOLUTE AUTO 0.04 K/mm3 (0.00-0.23); BASOPHILS PERCENT AUTO 0 % (0-2); EOSINOPHILS ABSOLUTE AUTO 0.14 K/mm3 (0.00-0.68); EOSINOPHILS PERCENT AUTO 1 % (0-6); Hematocrit 34.2 % (33.0-51.0); Hemoglobin 10.7 g/dL (11.5-16.0); IMMATURE GRAN ABSOLUTE AUTO 0.03 K/mm3 (0.00-0.10); IMMATURE GRAN PERCENT AUTO 0 % (0-1); LYMPHOCYTES ABSOLUTE AUTO 2.46 K/mm3 (0.84-5.20); LYMPHOCYTES PERCENT AUTO 21 % (21-46); MONOCYTES ABSOLUTE AUTO 0.81 K/mm3 (0.16-1.47); MONOCYTES PERCENT AUTO 7 % (4-13); Mean Corpuscular HGB 30.7 pg (26.0-34.0); Mean Corpuscular HGB Conc 31.3 g/dL (31.5-36.5); Mean Corpuscular Volume 98 fL (80-100); NEUTROPHILS ABSOLUTE AUTO 8.23 K/mm3 (1.96-9.15); NEUTROPHILS PERCENT AUTO 70 % (41-73); Platelet Count 273 K/mm3 (150-400); RDW Coefficient Variation 13.6 % (11.7-14.2); RDW Standard Deviation 48.2 fL (35.1-46.3); Red Blood Cell Count 3.49 M/mm3 (3.80-5.20); White Blood Cell Count 11.71 K/mm3 (4.00-11.30)
[2024-06-14 12:08] LABS: Bun/Creatinine Ratio 13.6 (12.0-20.0); Calcium, Blood 8.6 mg/dL (8.5-10.1); Creatinine, Blood 1.32 mg/dL (0.40-1.00); Potassium, Blood 4.3 mmol/L (3.5-5.5)
[2024-06-14 15:06] VITALS: BP 118/79
[2024-06-14 15:48] VITALS: BP 129/95
--- NOTE | 2024-06-14 18:04 | NUR ---
SHIFT SUMMARY PT STATED THAT SHE FELT BETTER TODAY AND TOLERATED MORE PO INTAKE THAN YESTERDAY. PAIN MEDICATION AND IV ABX GIVEN PER EMAR. NO OTHER ACUTE CHANGES. CALL LIGHT WITHIN REACH AND PT ABLE TO MAKE NEEDS KNOWN.
[2024-06-14 19:30] VITALS: BP 126/78
[2024-06-14] MEDS ORDERED: Gabapentin 300 MG Cap PO SCH (21:00)
[2024-06-14] MEDS ORDERED: Famotidine 20 MG Tab PO SCH (21:00)
--- NOTE | 2024-06-15 03:24 | NUR ---
SPORTS COMMENTATOR SUMMARY VSS. ALERT AND ORIENTED, UP WITH ASSIST TO BATHROOM. NO NOTED BLOODY EMESIS OF BOWEL OUTPUT. IV ANTIBIOTICS INFUSING ORDERED. PAIN MEDS ADMIN ABOUT EVERY 4 HRS OR SO. HAS BEEN RESTING QUIETLY WITH FEW INTERRUPTIONS. ABLE TO REPOSITION SELF IN BED WITHOUT ASSIST. CALL LIGHT IN REACH, RAILS UP X 2 AND BED IN LOW POSITION FOR SAFETY. HOB ELEVATED FOR RESP COMFORT.
[2024-06-15 04:16] VITALS: BP 117/78
[2024-06-15 05:51] LABS: BASOPHILS ABSOLUTE AUTO 0.06 K/mm3 (0.00-0.23); BASOPHILS PERCENT AUTO 1 % (0-2); EOSINOPHILS ABSOLUTE AUTO 0.25 K/mm3 (0.00-0.68); EOSINOPHILS PERCENT AUTO 3 % (0-6); Hematocrit 32.6 % (33.0-51.0); Hemoglobin 10.3 g/dL (11.5-16.0); IMMATURE GRAN ABSOLUTE AUTO 0.03 K/mm3 (0.00-0.10); IMMATURE GRAN PERCENT AUTO 0 % (0-1); LYMPHOCYTES ABSOLUTE AUTO 2.38 K/mm3 (0.84-5.20); LYMPHOCYTES PERCENT AUTO 24 % (21-46); MONOCYTES ABSOLUTE AUTO 0.78 K/mm3 (0.16-1.47); MONOCYTES PERCENT AUTO 8 % (4-13); Mean Corpuscular HGB 30.7 pg (26.0-34.0); Mean Corpuscular HGB Conc 31.6 g/dL (31.5-36.5); Mean Corpuscular Volume 97 fL (80-100); Mean Platelet Volume 9.8 fL (9.1-12.4); NEUTROPHILS ABSOLUTE AUTO 6.35 K/mm3 (1.96-9.15); NEUTROPHILS PERCENT AUTO 65 % (41-73); Platelet Count 278 K/mm3 (150-400); RDW Coefficient Variation 13.4 % (11.7-14.2); RDW Standard Deviation 48.2 fL (35.1-46.3); Red Blood Cell Count 3.36 M/mm3 (3.80-5.20); White Blood Cell Count 9.85 K/mm3 (4.00-11.30)
[2024-06-15 06:16] LABS: Bun/Creatinine Ratio 14.2 (12.0-20.0); Calcium, Blood 8.6 mg/dL (8.5-10.1); Creatinine, Blood 1.2 mg/dL (0.40-1.00); Potassium, Blood 4.4 mmol/L (3.5-5.5)
[2024-06-15 07:38] VITALS: BP 112/77
[2024-06-15] MEDS ORDERED: Potassium Chloride 10 Meq Tablet SA PO SCH (09:00)
[2024-06-15] MEDS ORDERED: Aspirin 81 MG Chew PO SCH (09:00)
[2024-06-15] MEDS ORDERED: Anastrozole 1 MG TAB PO SCH (09:00)
[2024-06-15] MEDS ORDERED: Spironolactone 50 MG Tab PO SCH (09:00)
[2024-06-15] MEDS ORDERED: Torsemide 20 MG TAB PO SCH (09:00)
[2024-06-15 14:59] VITALS: BP 113/77
--- NOTE | 2024-06-15 18:05 | NUR ---
SHIFT SUMMARY PT STATUS IMPROVED FROM YESTERDAY. PT TOLERATING PO AND ONLY C/O NAUSEA AFTER IV ABX ADMINISTRATION. CHRONIC PAIN MEDICATED PER EMAR. NO OTHER ACUTE CHANGES. CALL LIGHT WITHIN REACH AND PT ABLE TO MAKE NEEDS KNOWN.
[2024-06-15 20:21] VITALS: BP 116/69
[2024-06-16 04:38] VITALS: BP 120/70
[2024-06-16 05:55] LABS: BASOPHILS ABSOLUTE AUTO 0.07 K/mm3 (0.00-0.23); BASOPHILS PERCENT AUTO 1 % (0-2); EOSINOPHILS ABSOLUTE AUTO 0.42 K/mm3 (0.00-0.68); EOSINOPHILS PERCENT AUTO 5 % (0-6); Hematocrit 32.2 % (33.0-51.0); Hemoglobin 10.2 g/dL (11.5-16.0); IMMATURE GRAN ABSOLUTE AUTO 0.05 K/mm3 (0.00-0.10); IMMATURE GRAN PERCENT AUTO 1 % (0-1); LYMPHOCYTES ABSOLUTE AUTO 2.48 K/mm3 (0.84-5.20); LYMPHOCYTES PERCENT AUTO 27 % (21-46); MONOCYTES ABSOLUTE AUTO 0.79 K/mm3 (0.16-1.47); MONOCYTES PERCENT AUTO 9 % (4-13); Mean Corpuscular HGB 30.5 pg (26.0-34.0); Mean Corpuscular HGB Conc 31.7 g/dL (31.5-36.5); Mean Corpuscular Volume 96 fL (80-100); Mean Platelet Volume 9.9 fL (9.1-12.4); NEUTROPHILS ABSOLUTE AUTO 5.31 K/mm3 (1.96-9.15); NEUTROPHILS PERCENT AUTO 58 % (41-73); Platelet Count 292 K/mm3 (150-400); RDW Coefficient Variation 13.5 % (11.7-14.2); RDW Standard Deviation 47.8 fL (35.1-46.3); Red Blood Cell Count 3.34 M/mm3 (3.80-5.20); White Blood Cell Count 9.12 K/mm3 (4.00-11.30)
--- NOTE | 2024-06-16 06:11 | NUR ---
SHIFT SUMMARY ADMITTED FOR COLITIS/SEPSIS. FULL CODE. IV ANTIB RX ARE SCHEDULED. PLAN IS TO SWITCH ANTIB RX TO PO. CARDIAC DIET. PAIN AND NAUSEA RX GIVEN. A&O X4. CPAP @ HS. SHE STATES THAT SHE FEELS MUCH BETTER THAN WHEN SHE WAS ADMITTED. NO NEW CONCERNS THIS SHIFT.
[2024-06-16 07:34] VITALS: BP 117/81
[2024-06-16] MEDS ORDERED: MetroNIDAZOLE 500 MG Tab PO SCH (14:00)
[2024-06-16 15:52] VITALS: BP 120/81
--- NOTE | 2024-06-16 18:00 | NUR ---
PT IS AOX4 AND COOPERATIVE OF CARE. PT CONTINUES TO HAVE NAUSEA AND ABDOMINAL PAIN AND WAS TREATED PER EMAR. PT IS INDEPENDENT IN ROOM AND HAS BEEN RESTING IN BED THROUGHOUT THE DAY. CALL LIGHT IS WITHIN REACH WILL CONTINUE TO MONITOR.
[2024-06-16 20:17] VITALS: BP 128/84
[2024-06-16] MEDS ORDERED: Ciprofloxacin 500 MG Tab PO SCH (21:00)
--- NOTE | 2024-06-17 04:17 | NUR ---
SHIFT SUMMARY PATIENT HAD NO ACUTE CHANGES. ALERT ORIENTED, INDEPENDENT IN ROOM. [employer] [place]. REPORTED NAUSEOUS X ONE AND IV ZOFRAN GIVEN WITH GOOD EFFECT. ULTRAM GIVEN FOR ABDOMEN PAIN X ONE. DENIES CHEST PAIN, SOB, AND N/V. VSS/AFEBRILE. PIVS INTACT. CALL LIGHT IN REACH. BED IN LOWEST POSITION. WILL CONTINUE TO MONITOR UNTIL DAY SHIFT NURSE ASSUMES CARE
[2024-06-17 04:36] VITALS: BP 124/80
[2024-06-17 06:19] LABS: BASOPHILS ABSOLUTE AUTO 0.07 K/mm3 (0.00-0.23); BASOPHILS PERCENT AUTO 1 % (0-2); EOSINOPHILS ABSOLUTE AUTO 0.29 K/mm3 (0.00-0.68); EOSINOPHILS PERCENT AUTO 3 % (0-6); Hematocrit 33.8 % (33.0-51.0); Hemoglobin 10.6 g/dL (11.5-16.0); IMMATURE GRAN ABSOLUTE AUTO 0.04 K/mm3 (0.00-0.10); IMMATURE GRAN PERCENT AUTO 0 % (0-1); LYMPHOCYTES ABSOLUTE AUTO 2.92 K/mm3 (0.84-5.20); LYMPHOCYTES PERCENT AUTO 33 % (21-46); MONOCYTES ABSOLUTE AUTO 0.85 K/mm3 (0.16-1.47); MONOCYTES PERCENT AUTO 10 % (4-13); Mean Corpuscular HGB 30.3 pg (26.0-34.0); Mean Corpuscular HGB Conc 31.4 g/dL (31.5-36.5); Mean Corpuscular Volume 97 fL (80-100); Mean Platelet Volume 9.6 fL (9.1-12.4); NEUTROPHILS ABSOLUTE AUTO 4.79 K/mm3 (1.96-9.15); NEUTROPHILS PERCENT AUTO 54 % (41-73); Platelet Count 313 K/mm3 (150-400); RDW Coefficient Variation 13.6 % (11.7-14.2); RDW Standard Deviation 48.7 fL (35.1-46.3); White Blood Cell Count 8.96 K/mm3 (4.00-11.30)
[2024-06-17 06:49] LABS: Bun/Creatinine Ratio 10.7 (12.0-20.0); Calcium, Blood 8.8 mg/dL (8.5-10.1); Creatinine, Blood 1.4 mg/dL (0.40-1.00); Potassium, Blood 4.1 mmol/L (3.5-5.5)
[2024-06-17 07:20] VITALS: BP 118/80
[2024-06-17] MEDS ORDERED: ASPI81CH PO (12:22)
[2024-06-17] MEDS ORDERED: Acetaminophen650 M1 PO (12:22)
[2024-06-17] MEDS ORDERED: FAMO20 PO (12:23)
[2024-06-17] MEDS ORDERED: CIPR500 PO (12:23)
[2024-06-17] MEDS ORDERED: METR500 PO (12:24)
[2024-06-17] MEDS ORDERED: TRAM50 PO (12:25)
[2024-06-17] MEDS ORDERED: VISBIOME 112.51 EACH PO (12:25)
[2024-06-17] MEDS ORDERED: MIRALAX1714 PO (12:26)
[2024-06-17] MEDS ORDERED: PROM25 PO (12:27)
--- NOTE | 2024-06-17 13:04 | NUR ---
PT DISCHARGED AT 1250 WITH FRIEND TO TRANSPORT HOME. PT HAS BEEN DOING WELL TREATED FOR PAIN PER EMAR TODAY AND HAS TOLERATED HER DIET. NO DISTRESS NOTED AND INDEPENDENT IN ROOM. PAPERWORK REVIEWED AND EDUCATIONAL MATERIAL SENT WITH PT. PT ESCORTED TO ENTRANCE VIA WHEELCHAIR WITH PERSONAL BELONGINGS.
== END 2024-06-17 13:18 | disposition home or self-care (01) | DRG 872 ==
LOC: ER 03:34 → ERHOLD 06:02 → MEDS 16:42
PROVIDERS: Internal Medicine; Student in an Organized Health Care Education/Training Program; ADMIT Student in an Organized Health Care Education/Training Program
DX: A41.9 Sepsis, unspecified organism (principal); N17.9 Acute kidney failure, unspecified; I50.32 Chronic diastolic (congestive) heart failure; I13.0 Hypertensive heart and chronic kidney disease with heart failure and stage 1 through stage 4 chronic kidney disease, or unspecified chronic kidney disease; E87.20 Acidosis, unspecified; A09 Infectious gastroenteritis and colitis, unspecified; R65.20 Severe sepsis without septic shock; J44.9 Chronic obstructive pulmonary disease, unspecified; G47.33 Obstructive sleep apnea (adult) (pediatric); N18.30 Chronic kidney disease, stage 3 unspecified; I25.10 Atherosclerotic heart disease of native coronary artery without angina pectoris; K21.9 Gastro-esophageal reflux disease without esophagitis; I95.9 Hypotension, unspecified; Z88.0 Allergy status to penicillin; Z95.2 Presence of prosthetic heart valve; Z88.2 Allergy status to sulfonamides; Z88.1 Allergy status to other antibiotic agents; Z88.8 Allergy status to other drugs, medicaments and biological substances; Z95.1 Presence of aortocoronary bypass graft; Z85.3 Personal history of malignant neoplasm of breast; Z79.891 Long term (current) use of opiate analgesic
CPT/HCPCS: 36415; 36416; 74176; 74177; 80048; 80076; 82570; 83605; 83690; 83735; 84300; 85014; 85018; 85025; 87040; 87507; 93005; 93010; 96374-59; 96375; 99285-25; A9270; J0744; J1885; J2270; J2405; J7030; J7050; J7120; Q9967

== ENCOUNTER → 2024-08-09 | Outpatient (CLI) | payer OTHER ==
[~2024-08-09] MED LIST changes: +ANASTROZOLE1 M7 PO; +ASPI81CH PO; +CIPR500 PO; +FAMO20 PO; +GABA300 PO; +METR500 PO; +MIRALAX1714 PO; +POTA10T PO; +TRAM50 PO; +VISBIOME 112.51 EACH PO
[2024-08-09 14:05] LABS: Source, Urine Clean Catch
[2024-08-09 16:26] LABS: Appearance, Urine Clear (Clear); Bilirubin, Urine Neg (Neg); Blood, Urine Neg (Neg); Glucose Qualitative, Urine Neg (Neg); Ketones, Urine Neg (Neg); Leukocyte Esterase, Urine Neg (Neg); Nitrite, Urine Neg (Neg); Protein, Urine Neg (Neg); Urobilinogen, Urine NORM (Normal)
[2024-08-09 16:34] LABS: Color, Urine Pale Yellow (P-Yellow)
[2024-08-09 17:23] LABS: Creatinine, Urine Random 30.6 mg/dL (27.00-270.00); Protein/Creat Ratio, Ur Random 0.2
== END ==
LOC: LAB SHORT 12:45 → LAB 12:45
PROVIDERS: Hospitalist
DX: N18.31 Chronic kidney disease, stage 3a (principal); R82.90 Unspecified abnormal findings in urine
CPT/HCPCS: 81003; 82570; 84156

== ENCOUNTER → 2025-02-08 | Outpatient (CLI) | payer OTHER ==
[2025-02-08 14:43] LABS: BASOPHILS ABSOLUTE AUTO 0.08 K/mm3 (0.00-0.23); BASOPHILS PERCENT AUTO 1 % (0-2); EOSINOPHILS ABSOLUTE AUTO 0.27 K/mm3 (0.00-0.68); EOSINOPHILS PERCENT AUTO 3 % (0-6); Hematocrit 40.1 % (33.0-51.0); Hemoglobin 12.7 g/dL (11.5-16.0); IMMATURE GRAN ABSOLUTE AUTO 0.02 K/mm3 (0.00-0.10); IMMATURE GRAN PERCENT AUTO 0 % (0-1); LYMPHOCYTES ABSOLUTE AUTO 3.29 K/mm3 (0.84-5.20); LYMPHOCYTES PERCENT AUTO 34 % (21-46); MONOCYTES ABSOLUTE AUTO 0.98 K/mm3 (0.16-1.47); MONOCYTES PERCENT AUTO 10 % (4-13); Mean Corpuscular HGB Conc 31.7 g/dL (31.5-36.5); Mean Corpuscular Volume 93 fL (80-100); NEUTROPHILS ABSOLUTE AUTO 5.15 K/mm3 (1.96-9.15); NEUTROPHILS PERCENT AUTO 53 % (41-73); NRBC ABSOLUTE 0.00 K/mm3 (0.00-0.02); NRBC Auto 0.0 /100 WBC (0.0-0.2); Platelet Count 287 K/mm3 (150-400); RDW Coefficient Variation 14.1 % (11.7-14.2); RDW Standard Deviation 47.8 fL (35.1-46.3)
[2025-02-08 14:56] LABS: Alanine Aminotransfer (ALT/SGP 106.0 U/L (12-78); Albumin, Blood 3.4 g/dL (3.4-5.0); Albumin/Globulin Ratio 0.7 (0.8-1.8); Anion Gap 16.0 mmol/L (6-16); Aspartate Aminotrans (AST/SGOT 137.0 U/L (12-37); Bilirubin, Total 0.5 mg/dL (0.1-1.0); Blood Urea Nitrogen 21.0 mg/dL (8-24); CO2, Blood 27.0 mmol/L (21-32); Calcium, Blood 9.5 mg/dL (8.5-10.1); Chloride, Blood 101.0 mmol/L (98-108); Creatinine, Blood 1.68 mg/dL (0.40-1.00); Globulin, Blood 4.9 g/dL (2.2-4.0); Glucose, Blood 126.0 mg/dL (70-99); Potassium, Blood 4.5 mmol/L (3.5-5.5); Sodium, Blood 139.0 mmol/L (136-145); Total Protein, Blood 8.3 g/dL (6.4-8.2)
== END | disposition home or self-care (01) ==
LOC: LAB 14:38 → LAB SHORT 14:38
PROVIDERS: Physician Assistant
DX: R06.02 Shortness of breath (principal)
CPT/HCPCS: 80053; 83880; 84484; 85025

== ENCOUNTER 2025-03-20 09:29 | Inpatient (IN) | payer OTHER ==
[~2025-03-20] VITALS: Ht 160 cm; Wt 123.1 kg
[2025-03-20] MEDS ORDERED: Ondansetron 4 MG SoluTab SL ONE (10:15)
[2025-03-20 10:31] LABS: Source, Urine Clean Catch
[2025-03-20 10:34] LABS: Bilirubin, Urine Neg (Neg); Color, Urine Yellow (P-Yellow); Glucose Qualitative, Urine 4+ (Neg); Ketones, Urine Neg (Neg); Leukocyte Esterase, Urine 3+ (Neg); Protein, Urine 2+ (Neg); Specific Gravity, Urine 1.025 (1.003-1.022); Urobilinogen, Urine NORM (Normal)
[2025-03-20 10:42] LABS: Red Blood Cells, Urine 0-2 /hpf (0-2)
[2025-03-20] MEDS ORDERED: Ketorolac Tromethamine 30mg Vial IV ONE (10:50)
[2025-03-20 10:52] LABS: Alanine Aminotransfer (ALT/SGP 116.0 U/L (12-78); Albumin, Blood 3.1 g/dL (3.4-5.0); Albumin/Globulin Ratio 0.7 (0.8-1.8); Anion Gap 9.0 mmol/L (3-11); Aspartate Aminotrans (AST/SGOT 171.0 U/L (12-37); Bilirubin, Total 0.6 mg/dL (0.1-1.0); Blood Urea Nitrogen 19.0 mg/dL (8-24); CO2, Blood 23.0 mmol/L (21-32); Calcium, Blood 8.6 mg/dL (8.5-10.1); Chloride, Blood 106.0 mmol/L (98-108); Creatinine, Blood 1.42 mg/dL (0.40-1.00); Globulin, Blood 4.5 g/dL (2.2-4.0); Glucose, Blood 165.0 mg/dL (70-99); Potassium, Blood 4.2 mmol/L (3.5-5.5); Sodium, Blood 134.0 mmol/L (136-145); Total Protein, Blood 7.6 g/dL (6.4-8.2)
[2025-03-20] MEDS ORDERED: NS 500 ML IV SCH (10:55)
[2025-03-20] MEDS ORDERED: Magnesium Sulf 2 GM/Water 50ML 50 ML IV ONE (11:00)
[2025-03-20 11:17] LABS: BASOPHILS ABSOLUTE AUTO 0.07 K/mm3 (0.00-0.23); BASOPHILS PERCENT AUTO 1 % (0-2); EOSINOPHILS ABSOLUTE AUTO 0.03 K/mm3 (0.00-0.68); EOSINOPHILS PERCENT AUTO 0 % (0-6); Hematocrit 37.2 % (33.0-51.0); Hemoglobin 11.6 g/dL (11.5-16.0); IMMATURE GRAN ABSOLUTE AUTO 0.04 K/mm3 (0.00-0.10); IMMATURE GRAN PERCENT AUTO 0 % (0-1); LYMPHOCYTES ABSOLUTE AUTO 2.69 K/mm3 (0.84-5.20); LYMPHOCYTES PERCENT AUTO 22 % (21-46); MONOCYTES ABSOLUTE AUTO 1.10 K/mm3 (0.16-1.47); MONOCYTES PERCENT AUTO 9 % (4-13); Mean Corpuscular HGB Conc 31.2 g/dL (31.5-36.5); Mean Corpuscular Volume 94 fL (80-100); NEUTROPHILS ABSOLUTE AUTO 8.14 K/mm3 (1.96-9.15); NEUTROPHILS PERCENT AUTO 68 % (41-73); NRBC ABSOLUTE 0.00 K/mm3 (0.00-0.02); NRBC Auto 0.0 /100 WBC (0.0-0.2); Platelet Count 303 K/mm3 (150-400); RDW Coefficient Variation 13.5 % (11.7-14.2); RDW Standard Deviation 46.5 fL (35.1-46.3)
[2025-03-20 11:32] LABS: Prothrombin Time Results 12.1 Sec (9.7-11.5)
[2025-03-20] MEDS ORDERED: Ciprofloxacin 400MG/D5 200ML 200 ML IV ONE (12:35)
[2025-03-20] MEDS ORDERED: MetroNIDAZOLE 500MG/NS 100 ml 100 ML IV ONE (12:35)
[2025-03-20] MEDS ORDERED: Prochlorperazine Edisylate 10 mg Vial IV PRN (13:40)
[2025-03-20] MEDS ORDERED: FLU VACC TS2025-26(6MOS UP)/PF 45 MCG/0.5 ML SYRINGE IM SCH (13:40)
[2025-03-20] MEDS ORDERED: NS 1,000 ML IV SCH (13:40)
[2025-03-20] MEDS ORDERED: HYDROmorphone HCl/Pf 1MG SYR IV PRN (16:00)
--- NOTE | 2025-03-20 16:07 | NUR ---
PALLIATIVE CARE CONSULT COMPLETE. NO AD/POLST ON FILE. PLAN TO MEET WITH PT AND FAMILY TOMORROW.
[2025-03-20 16:25] VITALS: BP 131/95
[2025-03-20] MEDS ORDERED: LIDO700A20 TOP (16:37)
[2025-03-20] MEDS ORDERED: ONDA4ODT MM (16:37)
[2025-03-20] MEDS ORDERED: FURO20 PO (16:38)
[2025-03-20] MEDS ORDERED: METF500 PO (16:38)
[2025-03-20] MEDS ORDERED: DAPAGLIFLOZIN10 MG PO (16:38)
[2025-03-20] MEDS ORDERED: OMEP20ER PO (16:39)
[2025-03-20] MEDS ORDERED: Ipratropium/Albuterol SulF 2.5-0.5MG/3 ML Amp INH PRN (16:40)
[2025-03-20] MEDS ORDERED: Formoterol/Mometasone MDI 5/200 mcg 13 GM INH SCH (16:40)
[2025-03-20] MEDS ORDERED: ALLO100 PO (16:42)
[2025-03-20] MEDS ORDERED: BUME2 PO (16:42)
[2025-03-20] MEDS ORDERED: IPRAT-ALBUT 0.5-3 ML INH (16:43)
--- NOTE | 2025-03-20 18:09 | NUR ---
SHIFT SUMMARY PT A&OX4, VSS, AMB W/ ASSIST, TOLERATING PO, AND DENIED PAIN. PT DID NOT C/O NAUSEA OR VOMITING AND NO DIARRHEA SINCE ADMIT TO FLOOR. PT REMAINS SOB W/ ACTIVITY, BUT DID NOT REQUIRE O2. RT TO SET UP HOME CPAP ONCE SON BRINGS IN. NS 1 OF 1 INFUSING PER ORDER. CALL LIGHT WITHIN REACH AND PT ABLE TO MAKE NEEDS KNOWN.
[2025-03-20 20:26] VITALS: BP 109/63
[2025-03-20] MEDS ORDERED: MetroNIDAZOLE 500MG/NS 100 ml 100 ML IV SCH (23:00)
[2025-03-20] MEDS ORDERED: Ciprofloxacin 400MG/D5 200ML 200 ML IV SCH (23:00)
[2025-03-20 23:03] VITALS: BP 124/76
[2025-03-20] MEDS ORDERED: FentaNYL Citrate 50 MCG/ML 2 ML Injection IV PRN (23:20)
[2025-03-21] VITALS (7 sets, daily range): BP systolic 95–121; BP diastolic 58–80
[2025-03-21 04:58] LABS: Hematocrit 33.9 % (33.0-51.0); Hemoglobin 10.4 g/dL (11.5-16.0); Mean Corpuscular HGB Conc 30.7 g/dL (31.5-36.5); Mean Corpuscular Volume 96 fL (80-100); NRBC ABSOLUTE 0.00 K/mm3 (0.00-0.02); NRBC Auto 0.0 /100 WBC (0.0-0.2); Platelet Count 270 K/mm3 (150-400); RDW Coefficient Variation 13.6 % (11.7-14.2); RDW Standard Deviation 47.9 fL (35.1-46.3)
[2025-03-21 05:57] LABS: Albumin, Blood 2.7 g/dL (3.4-5.0); Anion Gap 9 mmol/L (3-11); Blood Urea Nitrogen 20 mg/dL (8-24); CO2, Blood 24 mmol/L (21-32); Calcium, Blood 8.7 mg/dL (8.5-10.1); Chloride, Blood 105 mmol/L (98-108); Creatinine, Blood 1.37 mg/dL (0.40-1.00); Glucose, Blood 153 mg/dL (70-99); Magnesium, Blood 2.3 mg/dL (1.6-2.4); Phosphorus, Blood 3.8 mg/dL (2.5-4.9); Potassium, Blood 3.8 mmol/L (3.5-5.5); Sodium, Blood 134 mmol/L (136-145)
--- NOTE | 2025-03-21 06:05 | NUR ---
SHIFT SUMMARY PATIENT IS ALERT AND ORIENTED. PATIENT HAS REPORTED CHEST PAIN THIS SHIFT. EKG WAS COMPLETED AND COMPARED TO PREVIOUS EKG WHICH SHOWED NO DIFFERENCE. PROVIDER NOTIFIED. PATIENT WAS GIVEN PAIN MEDICATIONS WHICH RESOLVED THE ISSUE. PATIENT WAS PUT ON TELE WITH NO EVENTS. PATIENT HAS REPORTED NAUSEA AND MEDICATED PER EMAR. PATIENT HAS HAD NO COMPLAINTS OF VOMITTING OR SOB THIS SHIFT. PATIENT HAS BEEN COMPLIANT ON CPAP THIS SHIFT. NS INFUSED ORDERED. BED IN LOCKED AND LOWEST POSITION. CALL LIGHT IN PLACE.
[2025-03-21] MEDS ORDERED: NS 250 ML IV PRN (07:25)
--- NOTE | 2025-03-21 18:15 | NUR ---
SHIFT SUMMARY PT DID NOT HAVE NAUSEA, VOMITING, AND OR DIARRHEA THIS SHIFT. PT C/O ABD PAIN X1 THAT WAS MEDICATED PER EMAR. IV ABX INFUSED PER ORDER. NO OTHER ACUTE CHANGES. CALL LIGHT WITHIN REACH AND PT ABLE TO MAKE NEEDS KNOWN.
[2025-03-22 04:50] VITALS: BP 99/58
--- NOTE | 2025-03-22 06:12 | NUR ---
SHIFT SUMMARY PATIENT IS ALERT AND ORIENTED. PATIENT HAS HAD NO ACUTE EVENTS THIS SHIFT. VITAL SIGNS REVIEWED. ABX INFUSED ORDERED. PATIENT HAS COMPLAINED OF NAUSEA THIS SHIFT. PATIENT HAS HAD NO COMPLAINTS OF SOB, PAIN OR VOMITTING THIS SHIFT. PATIENT HAS BEEN IND THIS SHIFT. BED IN LOCKED AND LOWEST POSITION. CALL LIGHT IN PLACE.
[2025-03-22 08:00] VITALS: BP 129/80
[2025-03-22 11:24] VITALS: BP 119/71
[2025-03-22] MEDS ORDERED: CIPR500 PO (13:49)
[2025-03-22] MEDS ORDERED: METR500 PO (13:49)
[2025-03-22] MEDS ORDERED: OXAYDO5 M1 PO (13:50)
--- NOTE | 2025-03-22 14:12 | NUR ---
DISCHARGE NOTE PT D/C HOME AT 1400. PT PROVIDED W/ VERBAL AND WRITTEN INSTRUCTIONS AND REPORTED UNDERSTANDING. PT A&OX4, VSS, AMB IND, TOLERATING PO, VOIDING, AND DENIED PAIN. BELONGINGS WERE RETURNED AND HARD SCRIPT PLACED IN D/C PACKET. PT ESCOURTED OUT BY SON.
== END 2025-03-22 14:00 | disposition home or self-care (01) | DRG 378 ==
LOC: ER 09:29 → MEDS 13:37
PROVIDERS: Emergency Medicine; Student in an Organized Health Care Education/Training Program; ADMIT Internal Medicine
DX: K62.5 Hemorrhage of anus and rectum (principal); I13.0 Hypertensive heart and chronic kidney disease with heart failure and stage 1 through stage 4 chronic kidney disease, or unspecified chronic kidney disease; I50.32 Chronic diastolic (congestive) heart failure; K52.9 Noninfective gastroenteritis and colitis, unspecified; N18.9 Chronic kidney disease, unspecified; K21.9 Gastro-esophageal reflux disease without esophagitis; J44.89 Other specified chronic obstructive pulmonary disease; I25.10 Atherosclerotic heart disease of native coronary artery without angina pectoris; K76.0 Fatty (change of) liver, not elsewhere classified; R25.1 Tremor, unspecified; Z88.0 Allergy status to penicillin; Z88.2 Allergy status to sulfonamides; Z23 Encounter for immunization; Z87.19 Personal history of other diseases of the digestive system; Z88.1 Allergy status to other antibiotic agents; Z88.8 Allergy status to other drugs, medicaments and biological substances; Z79.899 Other long term (current) drug therapy; Z79.82 Long term (current) use of aspirin; Z79.2 Long term (current) use of antibiotics; Z95.1 Presence of aortocoronary bypass graft; Z90.89 Acquired absence of other organs; Z90.49 Acquired absence of other specified parts of digestive tract; Z98.890 Other specified postprocedural states; Z95.2 Presence of prosthetic heart valve; Z87.891 Personal history of nicotine dependence
CPT/HCPCS: 36415; 71046; 74177; 80053; 80069; 81001; 83036; 83605; 83735; 83880; 84484; 85025; 85027; 85610; 85730; 86850; 86900; 86901; 87077; 87086; 87147; 87186; 93005; 93010; 94762; 96365-59; 96375; 99285-25; A9270; J0744; J0780; J1171; J1885; J3475; J7030; J7050; Q9967